=== PATIENT | female | born 1990 | race African-American/Black ===

== ENCOUNTER 2017-04-15 22:30 | Emergency (ER) | payer MEDICAID, OTHER ==
[~2017-04-15] VITALS: Ht 152.4 cm; Wt 50.0 kg
[2017-04-16 02:53] VITALS: BP 142/107
== END 2017-04-16 04:30 | disposition home or self-care (01) ==
LOC: ER 22:31
DX: K04.7 Periapical abscess without sinus (principal); I10 Essential (primary) hypertension; F12.10 Cannabis abuse, uncomplicated; F17.200 Nicotine dependence, unspecified, uncomplicated
CPT/HCPCS: 81025; 99283